=== PATIENT | male | born 1960 | race Caucasian/White ===

== ENCOUNTER 2019-06-06 02:47 | Inpatient (IN) | payer OTHER ==
[~2019-06-06] VITALS: Ht 167.6 cm; Wt 73.6 kg
[~2019-06-06 02:47] MED LIST: ACET325T33 PO; BACL10TA PO; BALS60OI TOP; DOXY100T2 PO; FENT1PAT7 TD; GABA-528 PO; LACT1CAP28 PO; MUPI22OI2 TOP; Nicotine (14 Mg/24 Hr) TRANSDERM; OMEP40CA38 PO; OXYC15TA PO; SAN30GM TOP; SODI473S5 TP
[2019-06-06] MEDS ORDERED: SODIUM CHLORIDE 0.9% 1L BAG IV* STA (03:15)
[2019-06-06] MEDS ORDERED: PIPER-TAZO 3.375 GM IV (PMX) 100 ML IVPB ONE (03:30)
[2019-06-06] MEDS ORDERED: VANCOMYCIN 1 GM (PMX) 250 ML IVPB ONE (03:30)
[2019-06-06] MEDS ORDERED: SOD CHLORIDE 0.9% 1,000 ML IV SCH (04:50)
[2019-06-06] MEDS ORDERED: ONDANSETRON 4 MG INJ IV PRN (05:00)
[2019-06-06] MEDS ORDERED: ACETAMINOPHEN 325 MG TAB PO PRN (05:00)
[2019-06-06] MEDS ORDERED: BISACODYL (EC) 5 MG TAB PO PRN (05:00)
[2019-06-06] MEDS ORDERED: VANCOMYCIN IV PER PHARMACY XX SCH (05:00)
[2019-06-06] MEDS ORDERED: DOCUSATE SODIUM 100 MG CAP PO PRN (05:00)
[2019-06-06] MEDS ORDERED: NACL 0.9% 3 ML SYG IV SCH (05:00)
[2019-06-06] MEDS ORDERED: LORAZEPAM 2 MG INJ IV PRN (05:30)
[2019-06-06 07:08] VITALS: Ht 167.6 cm; Wt 73.6 kg
[2019-06-06 08:43] VITALS: BP 98/55; PULSE 95; RESP 18
[2019-06-06] MEDS: NYSTATIN 30 GM POWDER BTL TOP SCH ×2 (09:16→21:59)
[2019-06-06] MEDS: HEPARIN 5,000 UNIT/1 ML VIAL SC SCH ×3 (09:18→21:59)
[2019-06-06] MEDS: PIPER-TAZO 3.375 GM IV (PMX) 100 ML IVPB SCH ×2 (13:15→18:12)
[2019-06-06 14:06] VITALS: BP 104/66; PULSE 101; RESP 16
[2019-06-06] MEDS ORDERED: COLLAGENASE 5 GM (UD JAR) TOP ONE (15:00)
[2019-06-06] MEDS: SOD CHLORIDE 0.9% 1,000 ML IV SCH ×2 (18:12→22:15)
[2019-06-06 19:00] VITALS: BP 118/77; PULSE 99; RESP 18
[2019-06-06] MEDS ORDERED: LACTOBACILLUS RHAMNOSUS CAP ONE (21:09)
[2019-06-06] MEDS ORDERED: LORAZEPAM 2 MG INJ IV SCH (21:30)
[2019-06-06] MEDS: BALSAM PERU/CASTOR OIL 60 GM TUBE TOP SCH (22:03)
[2019-06-06] MEDS: morphine 2 MG INJ IV PRN (22:19)
[2019-06-07] MEDS: PIPER-TAZO 3.375 GM IV (PMX) 100 ML IVPB SCH ×4 (00:51→17:40)
[2019-06-07] MEDS ORDERED: VANCOMYCIN 1 GM in 250 ML IVPB SCH (01:00)
[2019-06-07 04:16] VITALS: BP 110/72; PULSE 95; RESP 18
[2019-06-07] MEDS ORDERED: COLLAGENASE 5 GM (UD JAR) TOP PRN (04:30)
[2019-06-07] MEDS: morphine 2 MG INJ IV PRN ×5 (06:39→21:49)
[2019-06-07 08:03] VITALS: BP 117/71; PULSE 82; RESP 18
[2019-06-07] MEDS: HEPARIN 5,000 UNIT/1 ML VIAL SC SCH (08:14)
[2019-06-07] MEDS: COLLAGENASE 5 GM (UD JAR) TOP SCH (08:19)
[2019-06-07] MEDS: NYSTATIN 30 GM POWDER BTL TOP SCH ×2 (08:20→21:53)
[2019-06-07] MEDS: DAKINS 0.0125%(1/40) 473 ML SOLUTION TP SCH ×3 (08:20→21:53)
[2019-06-07] MEDS: BALSAM PERU/CASTOR OIL 60 GM TUBE TOP SCH ×2 (12:25→21:53)
[2019-06-07] MEDS: SOD CHLORIDE 0.9% 1,000 ML IV SCH (12:25)
[2019-06-07 13:53] VITALS: BP 122/62; PULSE 80; RESP 18
[2019-06-07] MEDS ORDERED: MAGNESIUM SULFATE 2 GM/50 ML 50 ML IVPB ONE (16:00)
[2019-06-07] MEDS: MUPIROCIN 2% 22 GM OINT TOP SCH (17:04)
[2019-06-07] MEDS ORDERED: POTASSIUM PHOSPHATE 30 MM in SOD CHLORIDE 0.9% 250 ML IVPB ONE (18:00)
[2019-06-07 20:11] VITALS: BP 127/71; PULSE 68; RESP 19
[2019-06-07] MEDS: traMADol 50 MG TAB PO SCH (20:39)
[2019-06-07] MEDS: GABAPENTIN 100 MG CAP PO SCH (20:39)
[2019-06-07] MEDS: FAMOTIDINE 20 MG TAB PO SCH (20:39)
[2019-06-07] MEDS ORDERED: PENDING SANTYL ORDER FOR WOUND CARE XX PRN (22:00)
[2019-06-07] MEDS ORDERED: VANCOMYCIN 750 MG (PMX) 250 ML IVPB SCH (22:00)
[2019-06-07] MEDS: VANCOMYCIN 750 MG (PMX) 250 ML IVPB SCH (22:56)
[2019-06-08] MEDS: PIPER-TAZO 3.375 GM IV (PMX) 100 ML IVPB SCH ×5 (01:12→23:32)
[2019-06-08] MEDS: MUPIROCIN 2% 22 GM OINT TOP SCH ×3 (01:12→21:27)
[2019-06-08] MEDS: morphine 2 MG INJ IV PRN ×6 (02:26→22:31)
[2019-06-08 02:31] VITALS: BP 128/61; PULSE 72; RESP 17
[2019-06-08 08:03] VITALS: BP 114/73; PULSE 69; RESP 18
[2019-06-08] MEDS: SOD CHLORIDE 0.9% 1,000 ML IV SCH (08:35)
[2019-06-08] MEDS: traMADol 50 MG TAB PO SCH ×3 (08:52→21:21)
[2019-06-08] MEDS: GABAPENTIN 100 MG CAP PO SCH ×3 (08:52→21:20)
[2019-06-08] MEDS: ENOXAPARIN 30 MG/0.3 ML SYG SC SCH (08:53)
[2019-06-08] MEDS: NYSTATIN 30 GM POWDER BTL TOP SCH ×2 (08:54→21:26)
[2019-06-08] MEDS: BALSAM PERU/CASTOR OIL 60 GM TUBE TOP SCH ×2 (08:54→21:27)
[2019-06-08] MEDS: COLLAGENASE 5 GM (UD JAR) TOP SCH (08:59)
[2019-06-08] MEDS: NICOTINE (14 MG/24 HR) PATCH TRANSDERM SCH (09:00)
[2019-06-08] MEDS: DAKINS 0.0125%(1/40) 473 ML SOLUTION TP SCH ×3 (09:17→21:26)
[2019-06-08] MEDS: VANCOMYCIN 750 MG (PMX) 250 ML IVPB SCH ×2 (10:25→21:20)
[2019-06-08 14:06] VITALS: BP 121/79; PULSE 76; RESP 18
[2019-06-08 20:00] VITALS: BP 128/62; PULSE 68; RESP 18
[2019-06-08] MEDS: FAMOTIDINE 20 MG TAB PO SCH (21:20)
[2019-06-08] MEDS: LACTOBACILLUS RHAMNOSUS CAP PO SCH (21:20)
[2019-06-09] MEDS: HYDROCODONE/APAP (10/325) TAB PO PRN ×3 (00:35→18:30)
[2019-06-09 02:00] VITALS: BP 132/76; PULSE 72; RESP 18
[2019-06-09] MEDS: morphine 2 MG INJ IV PRN ×5 (02:35→20:12)
[2019-06-09] MEDS: PIPER-TAZO 3.375 GM IV (PMX) 100 ML IVPB SCH ×4 (05:12→23:35)
[2019-06-09 07:19] VITALS: BP 132/82; PULSE 66; RESP 18
[2019-06-09] MEDS: traMADol 50 MG TAB PO SCH ×3 (08:28→21:13)
[2019-06-09] MEDS: ENOXAPARIN 30 MG/0.3 ML SYG SC SCH (08:28)
[2019-06-09] MEDS: LACTOBACILLUS RHAMNOSUS CAP PO SCH ×2 (08:28→20:13)
[2019-06-09] MEDS: GABAPENTIN 100 MG CAP PO SCH ×3 (08:28→20:13)
[2019-06-09] MEDS: MUPIROCIN 2% 22 GM OINT TOP SCH ×2 (08:29→20:15)
[2019-06-09] MEDS: BALSAM PERU/CASTOR OIL 60 GM TUBE TOP SCH ×2 (08:30→20:14)
[2019-06-09] MEDS: DAKINS 0.0125%(1/40) 473 ML SOLUTION TP SCH ×3 (08:30→20:14)
[2019-06-09] MEDS: NICOTINE (14 MG/24 HR) PATCH TRANSDERM SCH (08:30)
[2019-06-09] MEDS: COLLAGENASE 5 GM (UD JAR) TOP SCH (08:30)
[2019-06-09] MEDS: NYSTATIN 30 GM POWDER BTL TOP SCH ×2 (08:31→20:14)
[2019-06-09] MEDS: VANCOMYCIN 750 MG (PMX) 250 ML IVPB SCH (10:18)
[2019-06-09 14:19] VITALS: BP 143/82; PULSE 79; RESP 18
[2019-06-09 15:41] VITALS: BP 153/89; PULSE 64; RESP 16
[2019-06-09 19:26] VITALS: BP 154/80; PULSE 63; RESP 19
[2019-06-09] MEDS: FAMOTIDINE 20 MG TAB PO SCH (20:13)
[2019-06-09] MEDS ORDERED: morphine 2 MG INJ IV STA (20:18)
[2019-06-09] MEDS ORDERED: VANCOMYCIN 1 GM 250 ML IVPB SCH (22:00)
[2019-06-10] MEDS: morphine 2 MG INJ IV PRN ×7 (00:13→20:25)
[2019-06-10 02:00] VITALS: BP 149/80; PULSE 72; RESP 20
[2019-06-10] MEDS: PIPER-TAZO 3.375 GM IV (PMX) 100 ML IVPB SCH ×3 (05:24→18:13)
[2019-06-10] MEDS ORDERED: POTASSIUM CHLORIDE (SR) 20 MEQ TAB PO ONE (06:30)
[2019-06-10 08:15] VITALS: BP 160/97; PULSE 66; RESP 18
[2019-06-10] MEDS: ENOXAPARIN 40 MG/0.4 ML SYG SC SCH (09:00)
[2019-06-10] MEDS: NICOTINE (14 MG/24 HR) PATCH TRANSDERM SCH (09:00)
[2019-06-10] MEDS: GABAPENTIN 100 MG CAP PO SCH ×3 (09:45→20:22)
[2019-06-10] MEDS: traMADol 50 MG TAB PO SCH ×3 (09:45→20:22)
[2019-06-10] MEDS: DOXYCYCLINE 100 MG TAB PO SCH ×2 (09:45→20:22)
[2019-06-10] MEDS: LACTOBACILLUS RHAMNOSUS CAP PO SCH ×2 (09:45→20:22)
[2019-06-10] MEDS: COLLAGENASE 5 GM (UD JAR) TOP SCH (12:00)
[2019-06-10] MEDS: DAKINS 0.0125%(1/40) 473 ML SOLUTION TP SCH ×3 (12:00→21:00)
[2019-06-10] MEDS: BALSAM PERU/CASTOR OIL 60 GM TUBE TOP SCH ×2 (12:43→20:29)
[2019-06-10] MEDS: MUPIROCIN 2% 22 GM OINT TOP SCH ×2 (12:43→20:28)
[2019-06-10] MEDS: NYSTATIN 30 GM POWDER BTL TOP SCH ×2 (13:18→20:29)
[2019-06-10 19:49] VITALS: BP 136/75; PULSE 71; RESP 17
[2019-06-10] MEDS: FAMOTIDINE 20 MG TAB PO SCH (20:22)
[2019-06-11] MEDS: PIPER-TAZO 3.375 GM IV (PMX) 100 ML IVPB SCH ×4 (00:18→17:08)
[2019-06-11] MEDS: morphine 2 MG INJ IV PRN ×5 (00:35→20:19)
[2019-06-11 01:52] VITALS: BP 124/74; PULSE 78; RESP 18
[2019-06-11] MEDS: ENOXAPARIN 40 MG/0.4 ML SYG SC SCH ×2 (09:00→09:34)
[2019-06-11] MEDS: NICOTINE (14 MG/24 HR) PATCH TRANSDERM SCH (09:00)
[2019-06-11] MEDS: DOXYCYCLINE 100 MG TAB PO SCH ×2 (09:32→20:20)
[2019-06-11] MEDS: traMADol 50 MG TAB PO SCH ×3 (09:32→20:20)
[2019-06-11] MEDS: GABAPENTIN 100 MG CAP PO SCH ×3 (09:32→20:19)
[2019-06-11] MEDS: COLLAGENASE 5 GM (UD JAR) TOP SCH (09:32)
[2019-06-11] MEDS: LACTOBACILLUS RHAMNOSUS CAP PO SCH ×2 (09:32→20:20)
[2019-06-11] MEDS: BALSAM PERU/CASTOR OIL 60 GM TUBE TOP SCH ×2 (09:35→20:27)
[2019-06-11] MEDS: NYSTATIN 30 GM POWDER BTL TOP SCH ×2 (09:35→20:28)
[2019-06-11] MEDS: MUPIROCIN 2% 22 GM OINT TOP SCH ×2 (09:35→20:27)
[2019-06-11] MEDS: DAKINS 0.0125%(1/40) 473 ML SOLUTION TP SCH ×3 (11:39→20:27)
[2019-06-11 14:26] VITALS: BP 149/85; PULSE 82; RESP 18
[2019-06-11] MEDS ORDERED: HYDROCODONE/APAP (10/325) TAB PO PRN (14:30)
[2019-06-11 20:00] VITALS: BP 149/86; PULSE 65; RESP 18
[2019-06-11] MEDS: FAMOTIDINE 20 MG TAB PO SCH (20:20)
[2019-06-12] MEDS: morphine 2 MG INJ IV PRN ×4 (00:45→21:28)
[2019-06-12] MEDS: PIPER-TAZO 3.375 GM IV (PMX) 100 ML IVPB SCH ×5 (00:45→23:47)
[2019-06-12 01:02] VITALS: BP 151/86; PULSE 66; RESP 18
[2019-06-12 08:19] VITALS: BP 145/81; PULSE 71; RESP 16
[2019-06-12] MEDS: LACTOBACILLUS RHAMNOSUS CAP PO SCH ×2 (08:54→20:32)
[2019-06-12] MEDS: DOXYCYCLINE 100 MG TAB PO SCH ×2 (08:54→20:32)
[2019-06-12] MEDS: GABAPENTIN 100 MG CAP PO SCH ×3 (08:54→20:32)
[2019-06-12] MEDS: ENOXAPARIN 40 MG/0.4 ML SYG SC SCH (08:55)
[2019-06-12] MEDS: traMADol 50 MG TAB PO SCH ×3 (08:55→20:32)
[2019-06-12] MEDS: BALSAM PERU/CASTOR OIL 60 GM TUBE TOP SCH ×2 (08:56→20:30)
[2019-06-12] MEDS: COLLAGENASE 5 GM (UD JAR) TOP SCH (08:56)
[2019-06-12] MEDS: NYSTATIN 30 GM POWDER BTL TOP SCH ×2 (08:56→20:30)
[2019-06-12] MEDS: MUPIROCIN 2% 22 GM OINT TOP SCH ×2 (08:56→20:31)
[2019-06-12] MEDS: NICOTINE (14 MG/24 HR) PATCH TRANSDERM SCH (08:56)
[2019-06-12] MEDS: DAKINS 0.0125%(1/40) 473 ML SOLUTION TP SCH ×3 (08:57→20:30)
[2019-06-12 14:51] VITALS: BP 107/68; PULSE 68; RESP 18
[2019-06-12 20:00] VITALS: BP 148/79; PULSE 66; RESP 17
[2019-06-12] MEDS: FAMOTIDINE 20 MG TAB PO SCH (20:32)
[2019-06-12] MEDS ORDERED: POTASSIUM CHLORIDE (SR) 20 MEQ TAB PO STA (21:11)
[2019-06-13 01:47] VITALS: BP 149/87; PULSE 64; RESP 18
[2019-06-13] MEDS: PIPER-TAZO 3.375 GM IV (PMX) 100 ML IVPB SCH ×4 (05:30→23:31)
[2019-06-13 07:21] VITALS: BP 154/87; PULSE 16; PULSE 54; RESP 16
[2019-06-13] MEDS: traMADol 50 MG TAB PO SCH ×3 (08:46→20:31)
[2019-06-13] MEDS: GABAPENTIN 100 MG CAP PO SCH ×3 (08:46→20:30)
[2019-06-13] MEDS: DOXYCYCLINE 100 MG TAB PO SCH ×2 (08:46→20:30)
[2019-06-13] MEDS: LACTOBACILLUS RHAMNOSUS CAP PO SCH ×2 (08:46→20:30)
[2019-06-13] MEDS: DAKINS 0.0125%(1/40) 473 ML SOLUTION TP SCH ×3 (08:47→20:34)
[2019-06-13] MEDS: NICOTINE (14 MG/24 HR) PATCH TRANSDERM SCH (08:47)
[2019-06-13] MEDS: COLLAGENASE 5 GM (UD JAR) TOP SCH (08:47)
[2019-06-13] MEDS: MUPIROCIN 2% 22 GM OINT TOP SCH ×2 (08:48→20:34)
[2019-06-13] MEDS: NYSTATIN 30 GM POWDER BTL TOP SCH ×2 (08:48→20:34)
[2019-06-13] MEDS: BALSAM PERU/CASTOR OIL 60 GM TUBE TOP SCH ×2 (08:48→20:34)
[2019-06-13] MEDS: ENOXAPARIN 40 MG/0.4 ML SYG SC SCH (08:49)
[2019-06-13 13:25] VITALS: BP 162/98; PULSE 70; RESP 16
[2019-06-13] MEDS ORDERED: ALTEPLASE (CATHFLO) 2 MG INJ CATHETER PRN (15:30)
[2019-06-13] MEDS: morphine 2 MG INJ IV PRN (18:53)
[2019-06-13 19:53] VITALS: BP 111/58; PULSE 100; RESP 18
[2019-06-13] MEDS: FAMOTIDINE 20 MG TAB PO SCH (20:30)
[2019-06-14 01:43] VITALS: BP 114/76; PULSE 92; RESP 17
[2019-06-14] MEDS: PIPER-TAZO 3.375 GM IV (PMX) 100 ML IVPB SCH ×3 (05:04→17:26)
[2019-06-14] MEDS: morphine 2 MG INJ IV PRN ×3 (05:05→21:05)
[2019-06-14 07:57] VITALS: BP 197/101; PULSE 50; RESP 15
[2019-06-14] MEDS ORDERED: hydrALAzine 20 MG INJ IV PRN (08:30)
[2019-06-14] MEDS: LACTOBACILLUS RHAMNOSUS CAP PO SCH ×2 (08:40→21:03)
[2019-06-14] MEDS: traMADol 50 MG TAB PO SCH ×3 (08:40→21:03)
[2019-06-14] MEDS: GABAPENTIN 100 MG CAP PO SCH ×3 (08:40→21:03)
[2019-06-14] MEDS: DOXYCYCLINE 100 MG TAB PO SCH ×2 (08:40→21:03)
[2019-06-14] MEDS: ENOXAPARIN 40 MG/0.4 ML SYG SC SCH (08:44)
[2019-06-14] MEDS: NYSTATIN 30 GM POWDER BTL TOP SCH ×2 (08:45→21:04)
[2019-06-14] MEDS: DAKINS 0.0125%(1/40) 473 ML SOLUTION TP SCH ×3 (08:45→21:04)
[2019-06-14] MEDS: BALSAM PERU/CASTOR OIL 60 GM TUBE TOP SCH ×2 (08:45→21:04)
[2019-06-14] MEDS: MUPIROCIN 2% 22 GM OINT TOP SCH ×2 (08:45→21:04)
[2019-06-14] MEDS: COLLAGENASE 5 GM (UD JAR) TOP SCH (08:48)
[2019-06-14] MEDS: NICOTINE (14 MG/24 HR) PATCH TRANSDERM SCH (08:48)
[2019-06-14 14:57] VITALS: BP 159/91; PULSE 79; RESP 16
[2019-06-14 20:12] VITALS: BP 126/78; PULSE 76; RESP 17
[2019-06-14] MEDS: FAMOTIDINE 20 MG TAB PO SCH (21:02)
[2019-06-15] MEDS: PIPER-TAZO 3.375 GM IV (PMX) 100 ML IVPB SCH ×4 (00:59→17:06)
[2019-06-15] MEDS ORDERED: MAGNESIUM SULFATE 4 GM/100 ML 100 ML IVPB ONE (01:30)
[2019-06-15 01:35] VITALS: BP 138/83; PULSE 75; RESP 18
[2019-06-15] MEDS: morphine 2 MG INJ IV PRN ×3 (02:12→14:06)
[2019-06-15 07:32] VITALS: BP 126/80; PULSE 72; RESP 18
[2019-06-15] MEDS: DAKINS 0.0125%(1/40) 473 ML SOLUTION TP SCH ×2 (09:00→09:06)
[2019-06-15] MEDS: LACTOBACILLUS RHAMNOSUS CAP PO SCH (09:04)
[2019-06-15] MEDS: NICOTINE (14 MG/24 HR) PATCH TRANSDERM SCH (09:04)
[2019-06-15] MEDS: DOXYCYCLINE 100 MG TAB PO SCH (09:04)
[2019-06-15] MEDS: GABAPENTIN 100 MG CAP PO SCH ×2 (09:04→12:37)
[2019-06-15] MEDS: COLLAGENASE 5 GM (UD JAR) TOP SCH (09:04)
[2019-06-15] MEDS: traMADol 50 MG TAB PO SCH ×2 (09:04→12:37)
[2019-06-15] MEDS: ENOXAPARIN 40 MG/0.4 ML SYG SC SCH (09:05)
[2019-06-15] MEDS: MUPIROCIN 2% 22 GM OINT TOP SCH (09:06)
[2019-06-15] MEDS: NYSTATIN 30 GM POWDER BTL TOP SCH (09:07)
[2019-06-15] MEDS: BALSAM PERU/CASTOR OIL 60 GM TUBE TOP SCH (09:08)
[2019-06-15 14:04] VITALS: BP 119/75; PULSE 76; RESP 18
[2019-06-17] MEDS ORDERED: COLLAGENASE 5 GM (UD JAR) TOP SCH (09:00)
== END 2019-06-15 17:50 | disposition home health service (06) | DRG 698 ==
LOC: E/R 02:47 → MS3 04:53
PROVIDERS: ADMIT Family Medicine; ATTEND Family Medicine
PROC: 0T2BX0Z Change Drainage Device in Bladder, External Approach (ICD-10-PCS; principal; 2019-06-10)
DX: T83.510A Infection and inflammatory reaction due to cystostomy catheter, initial encounter (principal); A41.51 Sepsis due to Escherichia coli [E. coli]; L89.324 Pressure ulcer of left buttock, stage 4; L89.153 Pressure ulcer of sacral region, stage 3; A41.81 Sepsis due to Enterococcus; N39.0 Urinary tract infection, site not specified; G82.20 Paraplegia, unspecified; N17.9 Acute kidney failure, unspecified; M86.8X8 Other osteomyelitis, other site; T83.030A Leakage of cystostomy catheter, initial encounter; B18.2 Chronic viral hepatitis C; N31.9 Neuromuscular dysfunction of bladder, unspecified; E86.0 Dehydration; R62.7 Adult failure to thrive; G89.4 Chronic pain syndrome; Z59.0 Homelessness; F17.200 Nicotine dependence, unspecified, uncomplicated; Z99.3 Dependence on wheelchair; Z93.3 Colostomy status; F15.90 Other stimulant use, unspecified, uncomplicated; R33.9 Retention of urine, unspecified; Z93.2 Ileostomy status; Z91.19 Patient's noncompliance with other medical treatment and regimen; D64.9 Anemia, unspecified; Y84.6 Urinary catheterization as the cause of abnormal reaction of the patient, or of later complication, without mention of misadventure at the time of the procedure
CPT/HCPCS: 36415; 36573; 71045; 74176; 76775; 78315; 80048; 80053; 80202; 80307; 81001; 83605; 83735; 83930; 83935; 84100; 84134; 84145; 84300; 84443; 84484; 85025; 85610; 85651; 85730; 86140; 86704; 86706; 86709; 86803; 87070; 87081; 87086; 87340; 93005; 96374; 97110; 97162; 97530; A9503; A4310; J0360; J1644; J1650; J2270; J2543; J3370; J3475; J7030; J7050